=== PATIENT | male | born 1970 | race Hispanic/Latino ===

== ENCOUNTER 2017-02-05 14:19 | Emergency (ER) | payer MEDICAID ==
[2017-02-05] MEDS ORDERED: Sodium Chloride 0.9% 1,000 ML IV STA (15:10)
--- NOTE | 2017-02-05 15:16 | C.PDOC ---
History Of Present Illness 46 y/o M c PMHx heroin abuse, chronic Hep C p/w abdominal pain since last night. Describes pain as "hard," LLQ, radiating to umbilicus and RLQ, associated with nausea and diarrhea. Denies fever, vomiting, dysuria, chest pain. Patient had similar pain about 3 weeks ago at went to hospital in [place] and had CT which showed dilated appendix but no significant inflammation. He was admitted and his pain was gone the next morning and no operation was performed but he was instructed to return should the pain return. Time Seen by Provider: 02/05/17 14:50 Chief Complaint (Nursing): Abdominal Pain History Per: Patient History/Exam Limitations: no limitations Onset/Duration Of Symptoms: Days (1) Past Medical History Reviewed: Historical Data, Nursing Documentation, Vital Signs Vital Signs: Last Vital Signs Temp 98.1 F 02/05/17 18:08 Pulse 53 L 02/05/17 18:08 Resp 17 02/05/17 18:08 BP 128/76 02/05/17 18:08 Pulse Ox 94 L 02/05/17 18:49 - Medical History PMH: Anxiety, Bipolar Disorder, Depression Family History: States: No Known Family Hx - Social History Hx Alcohol Use: No Hx Substance Use: Yes Review Of Systems Except As Marked, All Systems Reviewed And Found Negative. Constitutional: Negative for: Fever Cardiovascular: Negative for: Chest Pain Physical Exam - Physical Exam Additional Physical Exam Comments: Constitutional: No acute distress. Head: Normocephalic. Atraumatic. Eyes: PERRL. ENT: Moist mucous membranes. Neck: Supple. Cardiovascular: Regular rate. Radial pulses 2+ bilaterally. Chest: No tenderness. Respiratory: Clear to auscultation bilaterally. GI: Soft. Nondistended. Mild LLQ tenderness. No rebound or guarding. Back: No CVA tenderness. Musculoskeletal: No tenderness or swelling of extremities. Skin: No rash. Neurologic: Alert, no focal deficit. ED Course And Treatment - Laboratory Results Result Diagrams: 02/05/17 15:39 02/05/17 15:39 O2 Sat by Pulse Oximetry: 94 Medical Decision Making Medical Decision Making: PLAN: * CT - Abd & Pelvis * Alcohol Serum * Drug Screen * CBC * Urinalysis * Zofran IVP * Sodium Chloride IV NOTE: * Will repeat labs and CT. Patient also states he was initially going to present to the ER for detox from heroin, but then he began having this pain last night. Will clear for detox should his medical evaluation be normal and there is bed availability for detox. CT - Abd & Pelvis: PROCEDURE: CT Abdomen and Pelvis with oral and IV contrast. HISTORY: abd pain, vomiting, r/o appendicitis COMPARISON: None available. TECHNIQUE: Contiguous axial images of the abdomen and pelvis. Oral and IV contrast was administered. Coronal and Sagittal reformats generated and reviewed. Contrast dose: 100 mL Omnipaque 350 Radiation dose: Total exam DLP = 585.51 mGy-cm. FINDINGS: LOWER THORAX: 9 mm right lower lobe calcified granuloma. Minimal basilar atelectasis. No visible pleural effusion or pneumothorax. LIVER: Hypoattenuation of the liver compatible with hepatic steatosis. GALLBLADDER AND BILE DUCTS: Decompressed gallbladder appears otherwise grossly unremarkable. PANCREAS: Unremarkable. SPLEEN: Unremarkable. ADRENALS: Unremarkable. KIDNEYS AND URETERS: The kidneys enhance symmetrically. No hydronephrosis or obstructing renal calculus. BLADDER: Thick-walled under distended urinary bladder. REPRODUCTIVE: The prostate gland measures approximately 3.9 x 4.3 cm. APPENDIX: The appendix measures approximately 9 mm in diameter, mildly dilated. No adjacent inflammatory changes identified. BOWEL: The stomach is nondistended. The bowel loops appear within normal limits of caliber without evidence of intestinal obstruction. PERITONEUM: No significant free fluid. No definite free air. LYMPH NODES: No bulky lymphadenopathy identified. VASCULATURE: Atherosclerotic calcifications. No aortic aneurysm. BONES: Degenerative changes of the spine. OTHER FINDINGS: Small fat containing umbilical hernia. IMPRESSION: The appendix measures approximately 9 mm in diameter, mildly dilated. No adjacent inflammatory changes identified. Correlate with white blood cell count and physical exam in order to assess for possibility of early appendicitis. Thick-walled urinary bladder likely exaggerated by under distension. Recommend correlation with urinalysis. Additional findings as above. Patient at reassessment states he feels better. There is no abdominal tenderness whatsoever. Patient appears well. Patient unlikely with appendicitis , pain is actually LLQ, not RLQ. There is no detox bed availability. I instructed the patient to call for availability each morning. I instructed the patient to return to the ER for RLQ pain. Disposition - Disposition Disposition: HOME/ ROUTINE Disposition Time: 18:08 Condition: STABLE Additional Instructions: Call the [facility] ER at [phone] and ask to be transferred to Detox and ask if they have any detox spots open for you. Instructions: Abdominal Pain (ED) - Clinical Impression Clinical Impression: Abdominal pain - Scribe Statement The provider has reviewed the documentation as recorded by the Scribe Janice Timmons Provider Attestation: All medical record entries made by the Octavioibe were at my direction and personally dictated by me. I have reviewed the chart and agree that the record accurately reflects my personal performance of the history, physical exam, medical decision making, and the department course for this patient. I have also personally directed, reviewed, and agree with the discharge instructions and disposition.
[2017-02-05] MEDS ORDERED: Sodium Chloride 0.9% 1,000 ML ONE (15:41)
[2017-02-05 15:50] LABS: BASO # 0.1 K/uL (0.0-0.2); BASO % 0.4 % (0.0-2.0); EOS # 0.1 K/uL (0.0-0.7); EOS % 1.1 % (0.0-4.0); HEMATOCRIT 39.6 % (35.0-51.0); LYMPH # 1.6 K/uL (1.0-4.3); LYMPH % 13.8 % (20.0-40.0); MEAN CELL VOLUME 90.2 fL (80.0-94.0); MEAN CORPUSCULAR HEMOGLOBIN 30.3 pg (27.0-31.0); MEAN CORPUSCULAR HGB CONC 33.6 g/dL (33.0-37.0); MONO # 0.7 K/uL (0.0-0.8); MONO % 5.8 % (0.0-10.0); RED CELL DISTRIBUTION WIDTH 13.8 % (11.5-14.5); WHITE BLOOD COUNT 11.7 K/uL (4.8-10.8)
[2017-02-05] MEDS ORDERED: Iohexol 240 (50 ml) PO ONE (15:51)
[2017-02-05 15:59] LABS: CHLORIDE 98 mmol/L (98-107); RBC URINE 6 /hpf (0-3); URINE BILIRUBIN NEGATIVE (NEGATIVE); URINE BLOOD NEGATIVE (NEGATIVE); URINE CALCIUM OXALATE CRYSTALS MANY /hpf (<OCC); URINE COLOR Yellow (YELLOW); URINE GLUCOSE (UA) NORMAL (Normal); URINE KETONE NEGATIVE (NEGATIVE); URINE LEUKOCYTE ESTERASE NEG Leu/uL (Negative); URINE PROTEIN NEGATIVE (NEGATIVE)
[2017-02-05 16:00] LABS: POTASSIUM 3.7 mmol/L (3.6-5.2); SODIUM 143 mmol/L (132-148)
[2017-02-05 16:02] LABS: GFR AFRICAN-AMERICAN > 60
[2017-02-05 16:03] LABS: ALB/GLOB RATIO 1.3 (1.0-2.1); ALKALINE PHOSPHATASE 64 U/L (38-126); ALT/SGPT 22 U/L (21-72); AST/SGOT 24 U/L (17-59); BILIRUBIN,TOTAL 0.5 mg/dL (0.2-1.3); BLOOD UREA NITROGEN 11 mg/dL (9-20); CALCIUM 8.8 mg/dl (8.6-10.4); CARBON DIOXIDE 31 mmol/L (22-30); GLUCOSE,RANDOM 95 mg/dL (75-110); TOTAL PROTEIN 7.3 g/dL (6.3-8.3)
[2017-02-05 16:04] LABS: ALCOHOL SERUM < 10 mg/dl (0-10)
[2017-02-05] MEDS ORDERED: Iohexol 240 (50 ml) ONE (16:24)
[2017-02-05] MEDS ORDERED: Iohexol 350mg/ml 100 ML ONE (16:38)
--- NOTE | 2017-02-05 18:09 | CT ---
PROCEDURE: CT Abdomen and Pelvis with oral and IV contrast. HISTORY: abd pain, vomiting, r/o appendicitis COMPARISON: None available. TECHNIQUE: Contiguous axial images of the abdomen and pelvis. Oral and IV contrast was administered. Coronal and Sagittal reformats generated and reviewed. Contrast dose: 100 mL Omnipaque 350 Radiation dose: Total exam DLP = 585.51 mGy-cm. FINDINGS: LOWER THORAX: 9 mm right lower lobe calcified granuloma. Minimal basilar atelectasis. No visible pleural effusion or pneumothorax. LIVER: Hypoattenuation of the liver compatible with hepatic steatosis. GALLBLADDER AND BILE DUCTS: Decompressed gallbladder appears otherwise grossly unremarkable. PANCREAS: Unremarkable. SPLEEN: Unremarkable. ADRENALS: Unremarkable. KIDNEYS AND URETERS: The kidneys enhance symmetrically. No hydronephrosis or obstructing renal calculus. BLADDER: Thick-walled under distended urinary bladder. REPRODUCTIVE: The prostate gland measures approximately 3.9 x 4.3 cm. APPENDIX: The appendix measures approximately 9 mm in diameter, mildly dilated. No adjacent inflammatory changes identified. BOWEL: The stomach is nondistended. The bowel loops appear within normal limits of caliber without evidence of intestinal obstruction. PERITONEUM: No significant free fluid. No definite free air. LYMPH NODES: No bulky lymphadenopathy identified. VASCULATURE: Atherosclerotic calcifications. No aortic aneurysm. BONES: Degenerative changes of the spine. OTHER FINDINGS: Small fat containing umbilical hernia. IMPRESSION: The appendix measures approximately 9 mm in diameter, mildly dilated. No adjacent inflammatory changes identified. Correlate with white blood cell count and physical exam in order to assess for possibility of early appendicitis. Thick-walled urinary bladder likely exaggerated by under distension. Recommend correlation with urinalysis. Additional findings as above.
[2017-02-05 18:14] VITALS: BP 128/76; PULSE 53; RESP 17; TEMP 98.1
[2017-02-05 18:18] VITALS: O2SAT 94
== END 2017-02-05 19:17 | disposition home or self-care (01) ==
LOC: C.ER 14:19
DX: R10.32 Left lower quadrant pain (principal)
CPT/HCPCS: 74177; 80053; 80320; 80324; 80329; 80345; 80346; 80349; 80353; 80358; 80361; 81001; 83690; 83992; 85025; 87086; 96361; 96374; 99285; J2405; J7040; Q9966; Q9967

== ENCOUNTER 2017-02-10 00:14 | Emergency (ER) | payer MEDICAID ==
[2017-02-10 00:44] VITALS: O2SAT 98
--- NOTE | 2017-02-10 01:25 | C.PDOC ---
History Of Present Illness 46 year old patient with a past medical history of depression, anxiety and bipolar disorder, presents to the ED requesting detox from heroin. Patient also states he ran out of his psychiatric medications several days ago. He denies any physical complaints at this time. Time Seen by Provider: 02/10/17 01:18 Chief Complaint (Nursing): Substance Abuse History Per: Patient History/Exam Limitations: no limitations Current Symptoms Are (Timing): Still Present Suicide/Self Injury Attempted (Context): None Modifying Factor(s): Narcotics Past Medical History Reviewed: Historical Data, Nursing Documentation, Vital Signs Vital Signs: Last Vital Signs Temp 98.1 F 02/10/17 02:57 Pulse 71 02/10/17 02:57 Resp 20 02/10/17 02:57 BP 107/58 L 02/10/17 02:57 Pulse Ox 98 02/10/17 04:52 - Medical History PMH: Anxiety, Bipolar Disorder, Depression Family History: States: No Known Family Hx - Social History Hx Alcohol Use: No Hx Substance Use: Yes - Immunization History Hx Tetanus Toxoid Vaccination: No Hx Influenza Vaccination: No Hx Pneumococcal Vaccination: Yes Review Of Systems Except As Marked, All Systems Reviewed And Found Negative. Constitutional: Negative for: Fever, Chills Cardiovascular: Negative for: Chest Pain Respiratory: Negative for: Cough, Shortness of Breath Gastrointestinal: Negative for: Nausea, Vomiting, Abdominal Pain, Diarrhea Psych: Negative for: Suicidal ideation Physical Exam - Physical Exam Appears: Well, Non-toxic, No Acute Distress Skin: Warm, Dry Eye(s): bilateral: Normal Inspection Oral Mucosa: Moist Neck: Normal, Normal ROM, Supple Cardiovascular: Rhythm Regular Respiratory: Normal Breath Sounds, No Rales, No Rhonchi, No Wheezing Gastrointestinal/Abdominal: Normal Exam, Bowel Sounds, Soft, No Tenderness Extremity: Normal ROM, No Pedal Edema, No Calf Tenderness Neurological/Psych: Oriented x3 Gait: Steady ED Course And Treatment O2 Sat by Pulse Oximetry: 98 (RA) Pulse Ox Interpretation: Normal Progress Note: Spoke with crisis counselor, there are no current detox beds available. Patient given 1 dose of PO Depakote/Seroquel/Zoloft in ED, as well as Rx for 1 week supply of the same. He was instructed to return to ED at another time or call crisis for prescreening. Patient also instructed to follow up with psychiatrist/PMD within 1 week for Rxs of his psychiatric meds/ reassessment. Reevaluation Time: 01:50 Reassessment Condition: Improved Disposition Counseled Patient/Family Regarding: Diagnosis, Need For Followup, Rx Given - Disposition Referrals: [facility] [Outside] Disposition: HOME/ ROUTINE Disposition Time: 01:50 Condition: STABLE Additional Instructions: FOLLOW UP WITH YOUR PSYCHIATRIST WITHIN 1 WEEK FOR YOUR PSYCHIATRIC MEDICATIONS/ EVALUATION RETURN TO ER IN 1-2 DAYS TO TRY AGAIN FOR DETOX BED, OR CALL FOR PRESCREENING Prescriptions: Divalproex [Depakote ER] 500 mg PO HS #7 ter QUEtiapine [SEROquel] 200 mg PO HS #7 tab Sertraline [Zoloft] 50 mg PO DAILY #7 tab Instructions: Narcotic Abuse (ED) Print Language: MALAGASY - POA Present On Arrival: None - Clinical Impression Clinical Impression: Heroin use, Medication refill - Scribe Statement The provider has reviewed the documentation as recorded by the Octavioibeliz Doan Provider Attestation: All medical record entries made by the Octavioibeliz were at my direction and personally dictated by me. I have reviewed the chart and agree that the record accurately reflects my personal performance of the history, physical exam, medical decision making, and the department course for this patient. I have also personally directed, reviewed, and agree with the discharge instructions and disposition.
[2017-02-10] MEDS ORDERED: Divalproex 500 mg DR Tab PO ONE (01:45)
[2017-02-10 02:58] VITALS: BP 107/58; PULSE 71; RESP 20; TEMP 98.1
== END 2017-02-10 03:35 | disposition home or self-care (01) ==
LOC: C.ER 00:14
DX: F11.10 Opioid abuse, uncomplicated (principal); Z76.0 Encounter for issue of repeat prescription

== ENCOUNTER 2017-02-10 13:02 | Inpatient (IN) | payer MEDICAID ==
--- NOTE | 2017-02-10 14:16 | C.PDOC ---
History Of Present Illness 46 y/o M c PMHx heroin abuse p/w syncope today. Patient states that he was going to call detox center to ask for bed availability when he suddenly lost consciousness and awoke on the floor. He denies chest pain, dyspnea, palpitations. His last heroin use was this morning. He notes he lost consciousness 3 times today. Reports mild facial pain but otherwise denies any injuries. Time Seen by Provider: 02/10/17 13:58 Chief Complaint (Nursing): Syncope Past Medical History Reviewed: Historical Data, Nursing Documentation, Vital Signs Vital Signs: Last Vital Signs Temp 98.5 F 02/10/17 13:28 Pulse 80 02/10/17 13:28 Resp 18 02/10/17 13:28 BP 108/72 02/10/17 13:28 Pulse Ox 98 02/10/17 15:07 - Medical History PMH: Anxiety, Bipolar Disorder, Depression Surgical History: No Surg Hx Family History: States: Unknown Family Hx - Social History Hx Tobacco Use: Yes (light smoker) Hx Alcohol Use: No Hx Substance Use: Yes (heroin iv) - Immunization History Hx Tetanus Toxoid Vaccination: No Hx Influenza Vaccination: No Hx Pneumococcal Vaccination: Yes Review Of Systems Except As Marked, All Systems Reviewed And Found Negative. Constitutional: Negative for: Fever Cardiovascular: Negative for: Chest Pain Respiratory: Negative for: Shortness of Breath Physical Exam - Physical Exam Additional Physical Exam Comments: Constitutional: No acute distress. Head: Normocephalic. Skin flap over bridge of nose. Contusion to forehead. Abrasion to chin. Eyes: PERRL. ENT: Moist mucous membranes. Neck: Supple. No midline tenderness. Cardiovascular: Regular rate. Radial pulse 2+ bilaterally. Chest: No tenderness. Respiratory: Clear to auscultation bilaterally. GI: Soft. Nontender. Nondistended. Back: No CVA tenderness. No midline tenderness. Musculoskeletal: No tenderness or swelling of extremities. FROM x 4. Pelvis stable. Skin: No rash. Neurologic: Alert, no focal deficit. ED Course And Treatment - Laboratory Results Result Diagrams: 02/10/17 14:23 02/10/17 14:23 O2 Sat by Pulse Oximetry: 98 (ra) Pulse Ox Interpretation: Normal Medical Decision Making Medical Decision Making: EKG NSR 62 bpm, no ST/T wave changes, normal intervals, normal axis. CT Head, Read by Shannon Riggins MD: FINDINGS: HEMORRHAGE: No intracranial hemorrhage. BRAIN: No mass effect or edema. No atrophy or chronic microvascular ischemic changes.Please note that MRI with diffusion imaging is more sensitive in the detection of acute ischemic event. VENTRICLES: No hydrocephalus. CALVARIUM: Unremarkable. PARANASAL SINUSES: Unremarkable as visualized. No significant inflammatory changes. MASTOID AIR CELLS: Unremarkable as visualized. No inflammatory changes. OTHER FINDINGS: None. IMPRESSION: No acute intracranial pathology identified. Accepted for observation by Dr. Barros. Disposition - Disposition Disposition: HOSPITALIZED Disposition Time: 15:00 Condition: FAIR - Clinical Impression Clinical Impression: Syncope
[2017-02-10 14:26] LABS: BASO % 0.2 % (0.0-2.0); EOS # 0.1 K/uL (0.0-0.7); EOS % 1.3 % (0.0-4.0); HEMATOCRIT 37.2 % (35.0-51.0); LYMPH # 1.6 K/uL (1.0-4.3); LYMPH % 14.5 % (20.0-40.0); MEAN CELL VOLUME 90.4 fL (80.0-94.0); MEAN CORPUSCULAR HEMOGLOBIN 29.9 pg (27.0-31.0); MEAN CORPUSCULAR HGB CONC 33.1 g/dL (33.0-37.0); MEAN PLATELET VOLUME 8.5 fL (7.2-11.7); MONO # 0.6 K/uL (0.0-0.8); RED CELL DISTRIBUTION WIDTH 13.9 % (11.5-14.5); WHITE BLOOD COUNT 11.1 K/uL (4.8-10.8)
[2017-02-10 14:33] LABS: CHLORIDE 104 mmol/L (98-107)
[2017-02-10 14:34] LABS: POTASSIUM 4.6 mmol/L (3.6-5.2); SODIUM 142 mmol/L (132-148)
[2017-02-10 14:36] LABS: ALB/GLOB RATIO 1.3 (1.0-2.1); AST/SGOT 19 U/L (17-59); BILIRUBIN,TOTAL 0.2 mg/dL (0.2-1.3); CARBON DIOXIDE 26 mmol/L (22-30); GFR AFRICAN-AMERICAN > 60; TOTAL PROTEIN 6.9 g/dL (6.3-8.3)
[2017-02-10 14:37] LABS: ALKALINE PHOSPHATASE 58 U/L (38-126); ALT/SGPT 26 U/L (21-72); BLOOD UREA NITROGEN 17 mg/dL (9-20); CALCIUM 8.7 mg/dl (8.6-10.4); GLUCOSE,RANDOM 90 mg/dL (75-110)
--- NOTE | 2017-02-10 14:59 | CT ---
PROCEDURE: CT HEAD WITHOUT CONTRAST. HISTORY: syncope and fall COMPARISON: None available. TECHNIQUE: Axial computed tomography images were obtained through the head/brain without intravenous contrast. Radiation dose: Total exam DLP = 983.55 mGy-cm. This CT exam was performed using one or more of the following dose reduction techniques: Automated exposure control, adjustment of the mA and/or kV according to patient size, and/or use of iterative reconstruction technique. FINDINGS: HEMORRHAGE: No intracranial hemorrhage. BRAIN: No mass effect or edema. No atrophy or chronic microvascular ischemic changes.Please note that MRI with diffusion imaging is more sensitive in the detection of acute ischemic event. VENTRICLES: No hydrocephalus. CALVARIUM: Unremarkable. PARANASAL SINUSES: Unremarkable as visualized. No significant inflammatory changes. MASTOID AIR CELLS: Unremarkable as visualized. No inflammatory changes. OTHER FINDINGS: None. IMPRESSION: No acute intracranial pathology identified.
[2017-02-10] MEDS ORDERED: Bacitracin 500 Units/gm Oint Foilpak UD TOP ONE (17:42)
--- NOTE | 2017-02-10 17:50 | CP.PCM.HP ---
<Wilda Blake - Last Filed: 02/10/17 19:20> History of Present Illness - History of Present Illness History of Present Illness: Internal medicine H & P for hospitalist service- Wildagary Blake, PGY-1 Pt S & E at bedside. 46 yo M w/PMH sig for Hep C, bipolar d/o, anxiety, depression admitted for syncopal events x 3. Pt reports that this morning at 9am, he was standing outside his sister's building with friends when he experienced lightheadedness, blurry vision and felt "woozy"/"off balance"- pt feel to the ground, reports LOC x 3-4 minutes, got back up after trauma to his head and left hand, then steadied himself on a wall, within 5 minutes he had the same symptoms and again LOC for 3-4 minutes, again got up and steadied himself on the wall x 30 minutes. Then pt walked into the building, got into the elevator, had the same symptoms and LOC in elevator at which point, a friend decided to bring him to the hospital. Pt reports last heroin use at approximately 11am (after LOC events). Admits to desire to enter detox- pt tried to get into detox program at [facility] [employer] - was given Rx and told to call in AM for bed. Admits to history of falls/LOC 3-4 times previous with no work up, headache, diplopia, diaphoresis, nausea, starting to feel that he's withdrawing- feeling shaky, myaglais. Denies emesis, fevers, chills, SOB, CP, abdominal pain, constipation , diarrhea, loss of bowel or bladder, numbness/tingling, dizziness, seizure activity, cough, congestion, sore throat. PMH: Hep C, Bipolar d/o, anxiety, depression, heart murmur (?) PSH: Tibia reconstructive surgery (), Left elbow reconstructive surgery ( ) All: Denies SH: Admits to 7-8 cigarettes/day tobacco use, denies ETOH, admits to heroin 8 bags/day x 20+ yrs intermittently PMD: Denies Present on Admission - Present on Admission Any Indicators Present on Admission: No History of DVT/PE: No History of Uncontrolled Diabetes: No Urinary Catheter: No Decubitus Ulcer Present: No Review of Systems - Review of Systems All systems: reviewed and no additional remarkable complaints except - Constitutional Constitutional: Weight Loss. absent: Chills, Fever, Headache - EENT Eyes: Blurred Vision, Change in Vision. absent: Diplopia Ears: absent: Dizziness Nose/Mouth/Throat: Nasal Trauma (over nasal bridge). absent: Nasal Congestion, Sore Throat - Cardiovascular Cardiovascular: absent: Chest Pain, Palpitations - Respiratory Respiratory: absent: Cough, Dyspnea on Exertion - Gastrointestinal Gastrointestinal: Nausea. absent: Abdominal Pain, Constipation, Diarrhea, Hematemesis, Hematochezia, Vomiting - Genitourinary Genitourinary: absent: Dysuria, Hematuria - Integumentary Integumentary: Wounds - Neurological Neurological: absent: Tingling, Vertigo - Psychiatric Psychiatric: Anxiety - Endocrine Endocrine: absent: Palpitations Past Patient History - Past Social History Smoking Status: Light Smoker < 10 Cigarettes Daily - HEMATOLOGICAL/ONCOLOGICAL Hx Blood Disorders: Yes Hx Hepatitis C: Yes - PSYCHIATRIC Hx Anxiety: Yes Hx Bipolar Disorder: Yes Hx Depression: Yes Hx Substance Use: Yes (heroin iv) - SURGICAL HISTORY Hx Surgeries: Yes Hx Orthopedic Surgery: Yes Other/Comment: right tib/fib fx sx (+) hardware. right elbow fx sx - ANESTHESIA Hx Anesthesia: Yes Meds Allergies/Adverse Reactions: Allergies Allergy/AdvReac Type Severity Reaction Status Date / Time No Known Allergies Allergy Verified 02/10/17 00:43 Physical Exam - Constitutional Appears: Non-toxic, No Acute Distress - Head Exam Head Exam: NORMOCEPHALIC. absent: ATRAUMATIC (abrasion on left side of chin- superficial, superficial laceration over nasal bridge- hemostatic, contusion on forehead), NORMAL INSPECTION - Eye Exam Eye Exam: EOMI, Normal appearance, PERRL Pupil Exam: NORMAL ACCOMODATION, PERRL - ENT Exam ENT Exam: Mucous Membranes Moist, Normal Exam - Neck Exam Neck exam: Positive for: Full Rom, Normal Inspection. Negative for: Tenderness - Respiratory Exam Respiratory Exam: Clear to Auscultation Bilateral, NORMAL BREATHING PATTERN. absent: Rales, Rhonchi, Wheezes, Respiratory Distress, Stridor - Cardiovascular Exam Cardiovascular Exam: REGULAR RHYTHM, +S1, +S2 - GI/Abdominal Exam GI & Abdominal Exam: Normal Bowel Sounds, Soft. absent: Distended, Firm, Guarding, Hernia, Rebound, Rigid, Tenderness - Extremities Exam Extremities exam: Positive for: full ROM, normal inspection. Negative for: pedal edema, tenderness - Back Exam Back exam: FULL ROM, NORMAL INSPECTION. absent: paraspinal tenderness, tenderness - Neurological Exam Neurological exam: Alert, CN II-XII Intact, Oriented x3 - Psychiatric Exam Psychiatric exam: Normal Affect, Normal Mood - Skin Skin Exam: Abrasion (over left chin, dorsum of left hand), Normal Color, Warm Additional comments: superficial laceration over nasal bridge- hemostatic Results - Vital Signs Recent Vital Signs: Last Vital Signs Temp 98.5 F 02/10/17 13:28 Pulse 80 02/10/17 13:28 Resp 18 02/10/17 13:28 BP 108/72 02/10/17 13:28 Pulse Ox 98 02/10/17 16:43 - Labs Result Diagrams: 02/10/17 14:23 02/10/17 14:23 Assessment & Plan - Assessment and Plan (Free Text) Assessment: Syncope FU echo FU serial ROMIs/EKG in AM NS@100 Zofran PRN Tylenol PRN Neuro checks Q4H Wound care to abrasions - Bacitracin Q12H FU carotids CT brain neg Substanace abuse/Bipolar/anxiety/depression Cont home meds: Depakote, Seroquel, Zoloft Started Methadone 10mg Q8H Psych consult- Jose L GI/DVT ppx SCDs Heparin pepcid Dispo Regular diet Admit to tele VS Q4H Seizure precautions Fall precautions Wound care to abrasions DW attending - Date & Time Date: 02/10/17 Time: 16:25 Decision To Admit - Pt Status Changed To: Hospital Disposition Of: Observation - . Bed Request Type: Telemetry Admitting Physician: Bon Franklin <Bon Franklin - Last Filed: 02/11/17 15:09> Results - Vital Signs Recent Vital Signs: Last Vital Signs Temp 98.6 F 02/11/17 00:30 Pulse 59 L 02/11/17 08:30 Resp 15 02/11/17 00:30 BP 127/75 02/11/17 00:30 Pulse Ox 100 02/11/17 00:30 - Labs Result Diagrams: 02/11/17 07:07 02/11/17 07:07 Labs: Laboratory Results - last 24 hr 02/10/17 02/11/17 02/11/17 20:11 02:08 07:07 WBC 8.4 RBC 3.94 L Hgb 11.9 L Hct 36.0 MCV 91.6 MCH 30.2 MCHC 33.0 RDW 14.2 Plt Count 227 MPV 8.9 Neut % (Auto) 55.9 Lymph % (Auto) 34.5 Divide % (Auto) 5.3 Eos % (Auto) 3.9 Baso % (Auto) 0.4 Neut # 4.7 Lymph # 2.9 Divide # 0.4 Eos # 0.3 Baso # 0.0 APTT 36 H Sodium 142 Potassium 4.0 Chloride 103 Carbon Dioxide 28 Anion Gap 15 BUN 14 Creatinine 0.9 Est GFR ( Amer) > 60 Est GFR (Non-Af Amer) > 60 Random Glucose 71 L Calcium 8.0 L Total Bilirubin 0.6 AST 15 L D ALT 20 L D Alkaline Phosphatase 49 Total Creatine Kinase 47 L 48 L CK-MB (Mass) 0.77 0.67 Troponin I, Quant < 0.0120 < 0.0120 Total Protein 5.8 L Albumin 3.2 L Globulin 2.6 Albumin/Globulin Ratio 1.2 Attending/Attestation - Attestation I have personally seen and examined this patient.: Yes I have fully participated in the care of the patient.: Yes I have reviewed all pertinent clinical information: Yes Notes (Text): 02/11/17 15:07 Patient was seen and examined at bedside with the resident at the time of admission The patient complains of multiple syncopal episodes. Patient also complains of body aches and pains and states that he is withdrawing from heroin We will admit the patient for syncope and heroin withdrawal. We will start the patient on methadone as needed for withdrawal symptoms We will also do workup for syncope Discussed the plan of care with the resident and agree with the above history and physical and assessment/plan by the resident.
[2017-02-10] MEDS: Sodium Chloride 0.9% 1,000 ML IV SCH (18:29)
[2017-02-10] MEDS ORDERED: Bacitracin 500 Units/gm Oint Foilpak UD ONE (18:34)
[2017-02-10] MEDS ORDERED: Sodium Chloride 0.9% 1,000 ML ONE (18:34)
[2017-02-10] MEDS ORDERED: Divalproex 500 mg DR Tab PO ONE (18:41)
[2017-02-10] MEDS: Divalproex 500 mg ER Tab PO SCH (18:46)
[2017-02-10] MEDS: Bacitracin Ointment 30 GM TUBE TOP SCH (20:39)
[2017-02-11] MEDS: Sodium Chloride 0.9% 1,000 ML IV SCH ×3 (01:45→19:34)
[2017-02-11] MEDS: Bacitracin Ointment 30 GM TUBE TOP SCH ×2 (06:41→19:33)
[2017-02-11 07:28] LABS: CHLORIDE 103 mmol/L (98-107); SODIUM 142 mmol/L (132-148)
[2017-02-11 07:29] LABS: BASO % 0.4 % (0.0-2.0); EOS # 0.3 K/uL (0.0-0.7); EOS % 3.9 % (0.0-4.0); LYMPH # 2.9 K/uL (1.0-4.3); LYMPH % 34.5 % (20.0-40.0); MEAN CELL VOLUME 91.6 fL (80.0-94.0); MEAN CORPUSCULAR HEMOGLOBIN 30.2 pg (27.0-31.0); MEAN PLATELET VOLUME 8.9 fL (7.2-11.7); MONO # 0.4 K/uL (0.0-0.8); MONO % 5.3 % (0.0-10.0); RED CELL DISTRIBUTION WIDTH 14.2 % (11.5-14.5); WHITE BLOOD COUNT 8.4 K/uL (4.8-10.8)
[2017-02-11 07:30] LABS: BILIRUBIN,TOTAL 0.6 mg/dL (0.2-1.3); GFR AFRICAN-AMERICAN > 60
[2017-02-11 07:31] LABS: ALB/GLOB RATIO 1.2 (1.0-2.1); ALKALINE PHOSPHATASE 49 U/L (38-126); ALT/SGPT 20 U/L (21-72); AST/SGOT 15 U/L (17-59); BLOOD UREA NITROGEN 14 mg/dL (9-20); CARBON DIOXIDE 28 mmol/L (22-30); GLUCOSE,RANDOM 71 mg/dL (75-110); TOTAL PROTEIN 5.8 g/dL (6.3-8.3)
[2017-02-11] MEDS: Divalproex 500 mg ER Tab PO SCH ×2 (09:28→19:33)
--- NOTE | 2017-02-11 12:40 | CP.PCM.PN ---
Addendum entered and electronically signed by Wilda Blake DO 02/11/17 14:04: Spoke with Dr. Ledezma regarding pt's request for detox- pt will be evaluated, possible transfer to detox unit when bed available. Original Note: <Wilda Blake - Last Filed: 02/11/17 12:37> Subjective - Date & Time of Evaluation Date of Evaluation: 02/11/17 Time of Evaluation: 07:10 - Subjective Subjective: Internal medicine progress note for Hospitalist service- Wilda Blake, PGY-1 Pt S & E at bedside. Pt reports continued blurry vision, lightheadedness, weakness, shakes, whole body pain from falls yesterday. Pt reports tolerating diet, denies N/V. Denies lethargy, F/C, SOB, CP, abdominal pain, slept ok, is urinating ok. Objective - Vital Signs/Intake and Output Vital Signs (last 24 hours): Temp Pulse Resp BP Pulse Ox 98.6 F 59 L 15 127/75 100 02/11/17 00:30 02/11/17 08:30 02/11/17 00:30 02/11/17 00:30 02/11/17 00:30 Intake and Output: 02/11/17 02/11/17 06:59 18:59 Intake Total 450 Balance 450 - Medications Medications: Current Medications Acetaminophen (Tylenol 325mg Tab) 650 mg PO Q6 PRN PRN Reason: Pain, moderate (4-7) Bacitracin (Bacitracin) 1 gm TOP Q12H [facility] Last Admin: 02/11/17 06:41 Dose: 1 gm Divalproex Sodium (Depakote Er) 500 mg PO DAILY [facility] Last Admin: 02/11/17 09:28 Dose: 500 mg Famotidine (Pepcid) 20 mg PO BID [facility] Last Admin: 02/11/17 09:28 Dose: 20 mg Heparin Sodium (Porcine) (Heparin) 5,000 units SC Q8 [facility] Last Admin: 02/11/17 05:15 Dose: 5,000 units Sodium Chloride (Sodium Chloride 0.9%) 1,000 mls @ 100 mls/hr IV .Q10H [facility] Last Admin: 02/11/17 04:04 Dose: Not Given Ibuprofen (Motrin Tab) 600 mg PO TID PRN PRN Reason: Pain, moderate (4-7) Methadone HCl (Methadone) 10 mg PO Q8H [facility] Last Admin: 02/11/17 09:28 Dose: 10 mg Ondansetron HCl (Zofran Inj) 4 mg IVP Q6 PRN PRN Reason: Nausea/Vomiting Quetiapine Fumarate (Seroquel) 200 mg PO HS [facility] Last Admin: 02/10/17 22:07 Dose: 200 mg Sertraline HCl (Zoloft) 50 mg PO DAILY [facility] Last Admin: 02/11/17 09:28 Dose: 50 mg - Labs Labs: 02/11/17 07:07 02/11/17 07:07 APTT 36 SECONDS (21-34) H 02/11/17 07:07 - Constitutional Appears: Non-toxic, No Acute Distress - Head Exam Head Exam: NORMAL INSPECTION, NORMOCEPHALIC. absent: ATRAUMATIC (contusion on forehead, superficial laceration over nasal bridge, abrasion of Left chin) - Eye Exam Eye Exam: EOMI, Normal appearance, PERRL Pupil Exam: NORMAL ACCOMODATION, PERRL - ENT Exam ENT Exam: Mucous Membranes Moist, Normal Exam - Neck Exam Neck Exam: Full ROM, Normal Inspection. absent: Tenderness - Respiratory Exam Respiratory Exam: Clear to Ausculation Bilateral, NORMAL BREATHING PATTERN - Cardiovascular Exam Cardiovascular Exam: REGULAR RHYTHM, +S1, +S2 - GI/Abdominal Exam GI & Abdominal Exam: Soft, Normal Bowel Sounds. absent: Tenderness - Extremities Exam Extremities Exam: Full ROM, Normal Inspection. absent: Pedal Edema, Tenderness - Back Exam Back Exam: Full ROM, NORMAL INSPECTION - Neurological Exam Neurological Exam: Alert, Awake, CN II-XII Intact, Oriented x3 - Psychiatric Exam Psychiatric exam: Normal Affect, Normal Mood - Skin Skin Exam: Abrasion (left chin), Dry, Normal Color, Warm. absent: Diaphoretic, Intact (nasal bridge laceration- superficial) Assessment and Plan - Assessment and Plan (Free Text) Assessment: Syncope Afebrile over 24H No leukocytosis FU echo- report pending Serial ROMIs neg x 3 EKG in AM- NSR NS@100 Zofran PRN Tylenol PRN Neuro checks Q4H Wound care to abrasions - Bacitracin Q12H FU carotids- report pending CT brain neg Motrin PRN Substance abuse/Bipolar/anxiety/depression Cont home meds: Depakote, Seroquel, Zoloft Started Methadone 10mg Q8H Psych consult- Jose L Pt desires detox program GI/DVT ppx SCDs Heparin pepcid Dispo Wound care FU psych recs VS Q4H Seizure precautions Fall precautions Wound care to abrasions DW attending <Bon Franklin - Last Filed: 02/11/17 17:28> Objective - Vital Signs/Intake and Output Vital Signs (last 24 hours): Temp Pulse Resp BP Pulse Ox 97.8 F 58 L 20 112/69 98 02/11/17 15:34 02/11/17 15:34 02/11/17 15:34 02/11/17 15:34 02/11/17 15:34 Intake and Output: 02/11/17 02/11/17 06:59 18:59 Intake Total 450 Balance 450 - Medications Medications: Current Medications Acetaminophen (Tylenol 325mg Tab) 650 mg PO Q6 PRN PRN Reason: Pain, moderate (4-7) Bacitracin (Bacitracin) 1 gm TOP Q12H [facility] Last Admin: 02/11/17 06:41 Dose: 1 gm Divalproex Sodium (Depakote Er) 500 mg PO DAILY [facility] Last Admin: 02/11/17 09:28 Dose: 500 mg Famotidine (Pepcid) 20 mg PO BID [facility] Last Admin: 02/11/17 09:28 Dose: 20 mg Heparin Sodium (Porcine) (Heparin) 5,000 units SC Q8 [facility] Last Admin: 02/11/17 14:24 Dose: 5,000 units Sodium Chloride (Sodium Chloride 0.9%) 1,000 mls @ 100 mls/hr IV .Q10H [facility] Last Admin: 02/11/17 04:04 Dose: Not Given Ibuprofen (Motrin Tab) 600 mg PO TID PRN PRN Reason: Pain, moderate (4-7) Methadone HCl (Methadone) 10 mg PO Q8H [facility] Last Admin: 02/11/17 09:28 Dose: 10 mg Ondansetron HCl (Zofran Inj) 4 mg IVP Q6 PRN PRN Reason: Nausea/Vomiting Quetiapine Fumarate (Seroquel) 200 mg PO HS [facility] Last Admin: 02/10/17 22:07 Dose: 200 mg Sertraline HCl (Zoloft) 50 mg PO DAILY [facility] Last Admin: 02/11/17 09:28 Dose: 50 mg - Labs Labs: 02/11/17 07:07 02/11/17 07:07 APTT 36 SECONDS (21-34) H 02/11/17 07:07 Attending/Attestation - Attestation I have personally seen and examined this patient.: Yes I have fully participated in the care of the patient.: Yes I have reviewed all pertinent clinical information, including history, physical exam and plan: Yes Notes (Text): 02/11/17 17:27 Patient was seen and examined at bedside with the resident Patient appears more comfortable today Still complains of dizziness Workup is in progress for syncope Patient is on methadone for heroin withdrawal Psychiatry evaluation has been requested Discussed the plan of care with the resident and agree with the above history and physical and assessment/plan by the resident
--- NOTE | 2017-02-11 14:26 | VASCLAB ---
PROCEDURE: HISTORY: Syncope COMPARISON: None available. TECHNIQUE: Grayscale and duplex Doppler evaluation of the cervical carotid and vertebral arteries were performed. The common carotid, carotid bifurcations and cervical Internal Carotid Artery (ICA) and proximal External Carotid Artery (ECA) were evaluated. The vertebral arteries were evaluated for gross patency and flow direction. Report prepared by COELEN Lott FINDINGS: RIGHT CAROTID ARTERIES: 1. Common Carotid Artery: Minimal heterogeneous plaque formation of the right CCA Maximum Peak Systolic velocity: 76 cm/sec: End-diastolic velocity 23 cm/sec. 2. Carotid Bifurcation: Heterogeneous plaque formation. Maximum Peak Systolic velocity: 51 cm/sec: End-diastolic velocity 15 cm/sec. 3. Internal Carotid Artery: Plaque description: Heterogeneous 3.1. Proximal Segment: Peak systolic velocity 67 cm/sec: End-diastolic velocity 31 cm/sec - % stenosis 0-15% 3.2. Middle Segment: Peak systolic velocity 82 cm/sec: End-diastolic velocity 45 cm/sec - % stenosis 0-15% 3.3. Distal Segment: Peak systolic velocity 97 cm/sec: End-diastolic velocity 37 cm/sec - % stenosis 0-15% 4. External Carotid Artery: Minimal heterogeneous plaque formation. Peak systolic velocity 44 cm/sec 5. ICA/CCA Ratio: 1.5 LEFT CAROTID ARTERIES: 1. Common Carotid Artery: Minimal heterogeneous plaque formation of the left CCAMaximum Peak Systolic velocity: 98 cm/sec: End-diastolic velocity 14 cm/sec. 2. Carotid Bifurcation: Heterogeneous plaque formation. Maximum Peak Systolic velocity: 56 cm/sec: End-diastolic velocity 23 cm/sec. 3. Internal Carotid Artery: Plaque description: Heterogeneous 3.1. Proximal Segment: Peak systolic velocity 61 cm/sec: End-diastolic velocity 27 cm/sec - % stenosis 0-15% 3.2. Middle Segment: Peak systolic velocity 88 cm/sec: End-diastolic velocity 43 cm/sec - % stenosis 0-15% 3.3. Distal Segment: Peak systolic velocity 50 cm/sec: End-diastolic velocity 27 cm/sec - % stenosis 0-15% 4. External Carotid Artery: No significant focal plaque formation. Peak systolic velocity 53 cm/sec 5. ICA/CCA Ratio: 1.4 VERTEBRAL ARTERIES: 1. Right Vertebral Artery: The right vertebral artery flow direction is antegrade. 2. Left Vertebral Artery: The left vertebral artery flow direction is antegrade. OTHER FINDINGS: 1. Right Brachial Blood pressure: 115 mmHg. 2. Left Brachial Blood pressure: 122 mmHg. IMPRESSION: RIGHT: Duplex scan does not suggest hemodynamically significant stenosis of the right extracranial carotid arteries. LEFT: Duplex scan does not suggest hemodynamically significant stenosis of the left extracranial carotid arteries.
--- NOTE | 2017-02-11 14:45 | CARD ---
APPROVED REPORT EKG Measurement Heart [id number] <Conclusion> Normal sinus rhythm Normal ECG
--- NOTE | 2017-02-11 17:46 | PCM.PSYCH ---
Initial Psychiatric Evaluation - Initial Psychiatric Evaluation Type of Admission: Voluntary Legal Status: Capacity Chief Complaint (in patient's own words): "I need detox" History of Present Illness and Precipitating Events: The pt is seen, chart reviewed and case discussed. Consultation is asked for his opioid use. He is a 46 yo LM, single, no child, homeless and unemployed. He uses 10 bags IV x25 years, on and off. Longest sobriety is 3.5 years. He did sbx and methadone before He also uses IV cocaine, MJ and cigarettes 1/2 ppd. Past psych hx: Bipolar d/o - Uses depakote, seroquel and zoloft. Somewhat questionable Medical hx: Hep C Family psych hx: Uncles used drugs Current Medications: Active Medications Generic Name Dose Route Start Last Admin Trade Name Freq PRN Reason Stop Dose Admin Acetaminophen 650 mg 02/10/17 17:30 Tylenol 325mg Tab PO Q6 PRN Pain, moderate (4-7) Bacitracin 1 gm 02/10/17 19:30 02/11/17 06:41 Bacitracin TOP 1 gm Q12H [facility] Administration Divalproex Sodium 500 mg 02/10/17 17:45 02/11/17 09:28 Depakote Er PO 500 mg DAILY [facility] Administration Famotidine 20 mg 02/10/17 18:00 02/11/17 17:27 Pepcid PO 20 mg BID [facility] Administration Heparin Sodium (Porcine) 5,000 units 02/10/17 17:45 02/11/17 14:24 Heparin SC 5,000 units Q8 [facility] Administration Sodium Chloride 1,000 mls @ 100 mls/hr 02/10/17 17:30 02/11/17 04:04 Sodium Chloride 0.9% IV Not Given .Q10H [facility] Ibuprofen 600 mg 02/11/17 08:13 Motrin Tab PO TID PRN Pain, moderate (4-7) Methadone HCl 10 mg 02/10/17 17:45 02/11/17 17:27 Methadone PO 10 mg Q8H [facility] Administration Ondansetron HCl 4 mg 02/10/17 17:30 Zofran Inj IVP Q6 PRN Nausea/Vomiting Quetiapine Fumarate 200 mg 02/10/17 22:00 02/10/17 22:07 Seroquel PO 200 mg HS [facility] Administration Sertraline HCl 50 mg 02/10/17 17:45 02/11/17 09:28 Zoloft PO 50 mg DAILY [facility] Administration Past Psychiatric History - Past Psychiatric History Previous Treatment History: Inpatient Pertinent Medical Hx (Current Medical&Sleep Prob, Allergies): Allergies Allergy/AdvReac Type Severity Reaction Status Date / Time No Known Allergies Allergy Verified 02/10/17 00:43 Divalproex [Depakote ER] 500 mg PO HS #7 ter 02/10/17 QUEtiapine [SEROquel] 200 mg PO HS #7 tab 02/10/17 Sertraline [Zoloft] 50 mg PO DAILY #7 tab 02/10/17 Review of Systems - Psychiatric Psychiatric: Abnormal Sleep Pattern. absent: Hallucinations, Homicidal Ideation , Paranoia, Suicidal Ideation Mental Status Examination - Personal Presentation Personal Presentation: Looks stated age - Affect Affect: Broad - Motor Activity Motor Activity: Calm - Reliability in Providing Information Reliability in Providing Information: Good - Speech Speech: Organized - Mood Mood: Neutral - Formal Thought Process Formal Thought Process: No Impairment - Cognitive Functions Orientation: Person, Place, Situation, Time Sensorium: Alert Attention/Concentration: Attentive Estimate of Intelligence: Average Judgement: Intact, as evidence by: Insight regarding need for hospitalization Memory: Recent intact, as evidence by: Ability to recall events of the day, Remote intact, as evidenced by: Abilit to recall sig. life events - Risk Risk: Withdrawal, Diminished functioning - Strength & Assets Inventory Strength & Assets Inventory: Cooperative - Limitations Limitations: Living alone DSM 5 DX - DSM 5 DSM 5 Diagnosis: Opioid withdrawal Opioid use d/o - severe Cocaine use d/o - severe Cannabis use d/o - severe Bipolar d/o - unspecified - Recommended/Plan of Treatment Treatment Recommendations and Plan of Treatment: Methadone detox adjusted As needed meds Support and psychoed Mi and CBT Refer to rehab Transfer to detox when medically cleared 33 min
[2017-02-12] MEDS: Sodium Chloride 0.9% 1,000 ML IV SCH (04:00)
[2017-02-12] MEDS: Bacitracin Ointment 30 GM TUBE TOP SCH ×2 (06:45→20:08)
[2017-02-12 07:38] LABS: BASO % 0.6 % (0.0-2.0); EOS # 0.3 K/uL (0.0-0.7); EOS % 4.5 % (0.0-4.0); HEMATOCRIT 36.7 % (35.0-51.0); LYMPH # 2.8 K/uL (1.0-4.3); LYMPH % 38.9 % (20.0-40.0); MEAN CELL VOLUME 91.8 fL (80.0-94.0); MEAN CORPUSCULAR HEMOGLOBIN 29.8 pg (27.0-31.0); MEAN CORPUSCULAR HGB CONC 32.5 g/dL (33.0-37.0); MEAN PLATELET VOLUME 9.1 fL (7.2-11.7); MONO # 0.4 K/uL (0.0-0.8); RED CELL DISTRIBUTION WIDTH 13.9 % (11.5-14.5); WHITE BLOOD COUNT 7.3 K/uL (4.8-10.8)
[2017-02-12 07:59] LABS: CHLORIDE 102 mmol/L (98-107); POTASSIUM 4.1 mmol/L (3.6-5.2); SODIUM 141 mmol/L (132-148)
[2017-02-12 08:01] LABS: GFR AFRICAN-AMERICAN > 60
[2017-02-12 08:02] LABS: ALB/GLOB RATIO 1.3 (1.0-2.1); ALKALINE PHOSPHATASE 50 U/L (38-126); ALT/SGPT 20 U/L (21-72); AST/SGOT 20 U/L (17-59); BILIRUBIN,TOTAL 0.4 mg/dL (0.2-1.3); BLOOD UREA NITROGEN 11 mg/dL (9-20); CARBON DIOXIDE 31 mmol/L (22-30); GLUCOSE,RANDOM 72 mg/dL (75-110)
--- NOTE | 2017-02-12 10:43 | CP.PCM.PN ---
<Wilda Blake - Last Filed: 02/12/17 10:40> Subjective - Date & Time of Evaluation Date of Evaluation: 02/12/17 Time of Evaluation: 07:00 - Subjective Subjective: Internal medicine progress note for Hospitalist service- Wilda Blake, PGY-1 Pt S & E at bedside. Pt reports improvement in blurry vision, lightheadedness, weakness, shakes, whole body pain. Pt reports tolerating diet, denies N/V. Denies lethargy, F/C , SOB, CP, abdominal pain, did not sleep due to Seroquel being held 2/2 bradycardia, is urinating ok. Pt stable. Objective - Vital Signs/Intake and Output Vital Signs (last 24 hours): Temp Pulse Resp BP Pulse Ox 97.8 F 45 L 19 134/80 98 02/12/17 08:00 02/12/17 08:28 02/12/17 08:00 02/12/17 08:00 02/12/17 08:00 Intake and Output: 02/12/17 02/12/17 06:59 18:59 Intake Total 1100 Output Total 325 Balance 775 - Medications Medications: Current Medications Acetaminophen (Tylenol 325mg Tab) 650 mg PO Q6 PRN PRN Reason: Pain, moderate (4-7) Bacitracin (Bacitracin) 1 gm TOP Q12H [facility] Last Admin: 02/12/17 06:45 Dose: 1 gm Divalproex Sodium (Depakote Er) 500 mg PO BID [facility] Last Admin: 02/11/17 19:33 Dose: 500 mg Famotidine (Pepcid) 20 mg PO BID [facility] Last Admin: 02/12/17 09:28 Dose: 20 mg Heparin Sodium (Porcine) (Heparin) 5,000 units SC Q8 [facility] Last Admin: 02/12/17 06:44 Dose: 5,000 units Sodium Chloride (Sodium Chloride 0.9%) 1,000 mls @ 100 mls/hr IV .Q10H [facility] Last Admin: 02/12/17 04:00 Dose: 100 mls/hr Ibuprofen (Motrin Tab) 600 mg PO TID PRN PRN Reason: Pain, moderate (4-7) Methadone HCl (Methadone) 20 mg PO Q24H [facility] PRN Reason: Taper Stop: 02/16/17 09:59 Ondansetron HCl (Zofran Inj) 4 mg IVP Q6 PRN PRN Reason: Nausea/Vomiting Quetiapine Fumarate (Seroquel) 100 mg PO HS [facility] Sertraline HCl (Zoloft) 50 mg PO DAILY [facility] Last Admin: 02/12/17 09:28 Dose: 50 mg - Labs Labs: 02/12/17 07:22 02/12/17 07:22 APTT 36 SECONDS (21-34) H 02/11/17 07:07 - Constitutional Appears: Non-toxic, No Acute Distress - Head Exam Head Exam: NORMOCEPHALIC. absent: ATRAUMATIC (healing superficial laceration over nasal bridge, healing abrasion over left chin, contusion on forehead resolving- smaller today) - Eye Exam Eye Exam: EOMI, Normal appearance, PERRL Pupil Exam: NORMAL ACCOMODATION, PERRL - ENT Exam ENT Exam: Mucous Membranes Moist, Normal Exam - Neck Exam Neck Exam: Full ROM, Normal Inspection - Respiratory Exam Respiratory Exam: Clear to Ausculation Bilateral, NORMAL BREATHING PATTERN - Cardiovascular Exam Cardiovascular Exam: REGULAR RHYTHM, +S1, +S2 - GI/Abdominal Exam GI & Abdominal Exam: Soft, Normal Bowel Sounds. absent: Tenderness - Extremities Exam Extremities Exam: Full ROM, Normal Inspection. absent: Pedal Edema - Back Exam Back Exam: Full ROM, NORMAL INSPECTION - Neurological Exam Neurological Exam: Alert, Awake, CN II-XII Intact, Oriented x3 - Psychiatric Exam Psychiatric exam: Normal Affect, Normal Mood - Skin Skin Exam: Abrasion (left chin), Dry, Normal Color, Warm. absent: Intact ( nasal bridge superficial laceration) Assessment and Plan - Assessment and Plan (Free Text) Assessment: Syncope - likely due to drug use Afebrile over 24H No leukocytosis FU echo- report pending NS@100 Zofran PRN Tylenol PRN Neuro checks Q4H Wound care to abrasions - Bacitracin Q12H carotids- no stenosis CT brain neg Motrin PRN Substance abuse/Bipolar/anxiety/depression Cont home meds: Depakote, Seroquel, Zoloft Methadone taper initiated Psych consulted- pt accepted to inpatient detox program as per Dr. Ledezma GI/DVT ppx SCDs Heparin pepcid Dispo Wound care to abrasions Pt stable Transfer to psych Further mgmt/changes in mgmt as per psych team Will s/o DW attending <Bon Franklin - Last Filed: 02/12/17 15:12> Objective - Vital Signs/Intake and Output Vital Signs (last 24 hours): Temp Pulse Resp BP Pulse Ox 97.7 F 57 L 18 151/92 H 97 02/12/17 14:58 02/12/17 14:58 02/12/17 14:58 02/12/17 14:58 02/12/17 14:58 - Medications Medications: Current Medications Acetaminophen (Tylenol 325mg Tab) 650 mg PO Q6 PRN PRN Reason: Pain, moderate (4-7) Bacitracin (Bacitracin) 1 gm TOP Q12H [facility] Last Admin: 02/12/17 06:45 Dose: 1 gm Divalproex Sodium (Depakote Dr) 500 mg PO BID [facility] Famotidine (Pepcid) 20 mg PO BID [facility] Last Admin: 02/12/17 09:28 Dose: 20 mg Heparin Sodium (Porcine) (Heparin) 5,000 units SC Q8 [facility] Last Admin: 02/12/17 06:44 Dose: 5,000 units Ibuprofen (Motrin Tab) 600 mg PO TID PRN PRN Reason: Pain, moderate (4-7) Methadone HCl (Methadone) 20 mg PO Q24H [facility] PRN Reason: Taper Stop: 02/16/17 09:59 Last Admin: 02/12/17 09:55 Dose: 20 mg Quetiapine Fumarate (Seroquel) 100 mg PO HS [facility] Sertraline HCl (Zoloft) 50 mg PO DAILY [facility] Last Admin: 02/12/17 09:28 Dose: 50 mg - Labs Labs: APTT 36 SECONDS (21-34) H 02/11/17 07:07 Attending/Attestation - Attestation I have personally seen and examined this patient.: Yes I have fully participated in the care of the patient.: Yes I have reviewed all pertinent clinical information, including history, physical exam and plan: Yes Notes (Text): 02/12/17 15:10 Patient was seen and examined at bedside with the resident Patient appears comfortable Wounds are healing. Continue bacitracin ointment daily Patient has been excepted by detox unit. Patient is medically cleared for transfer to detox. Discussed with the resident. Agree with the above history and physical and assessment/plan by the resident.
[2017-02-12] MEDS: Divalproex 500 mg ER Tab PO SCH (11:30)
--- NOTE | 2017-02-12 14:37 | CARD ---
APPROVED REPORT EXAM: Two-dimensional and M-mode echocardiogram with Doppler and color Doppler. Other Information Quality : GoodRhythm : INDICATION Murmur Syncope HEROIN USE M-Mode DIMENSIONS RVDd1.68 (2.1-3.2cm)Left Atrium (MM)3.51 (2.5-4.0cm) IVSd0.94 (0.7-1.1cm)Aortic Root3.12 (2.2-3.7cm) LVDd6.09 (4.0-5.6cm)Aortic Cusp Exc.2.19 (1.5-2.0cm) PWd0.94 (0.7-1.1cm)FS (%) 33 % LVDs4.10 (2.0-3.8cm)LVEF (%)60 (>50%) Aortic Valve AoV Peak Vpfrjjuj590.9cm/Margret Peak GR.6mmHgAI P 1/2 [id number] Mitral Valve MV E Pccopnre352.5cm/sMV A Wymgsmox63.2cm/sE/A ratio1.8 TDI E/Lateral E'0.0E/Medial E'0.0 Tricuspid Valve TR Peak [id number]/sTR Peak Gr.[id number] LEFT VENTRICLE The Left Ventricle is mildly dilated. There is normal left ventricular wall thickness. The left ventricular function is normal. The left ventricular ejection fraction is within the normal range. No regional wall motion abnormalities noted. The left ventricular diastolic function is normal. No left ventricle thrombus noted on this study. There is no ventricular septal defect visualized. There is no left ventricular aneurysm. There is no mass noted in the left ventricle. RIGHT VENTRICLE The right ventricle is normal size. There is normal right ventricular wall thickness. The right ventricular systolic function is normal. ATRIA The left atrium size is normal. The right atrium size is normal. The interatrial septum is intact with no evidence for an atrial septal defect. AORTIC VALVE ABNORMAL ECHO DENSITY ON ARTERIAL SIDE OF AOV ? PAPILOMA CORRELATE WITH DEBBY There is mild aortic regurgitation. There is no aortic valvular stenosis. There is no aortic valvular vegetation. MITRAL VALVE The mitral valve is normal in structure and function. There is no evidence of mitral valve prolapse. There is no mitral valve stenosis. Mitral regurgitation is mild. TRICUSPID VALVE The tricuspid valve is normal in structure and function. There is mild tricuspid regurgitation. Right ventricular systolic pressure is estimated at less than 30 mmHg. There is no tricuspid valve prolapse or vegetation. There is no tricuspid valve stenosis. PULMONIC VALVE The pulmonary valve is normal in structure and function. There is no pulmonic valvular regurgitation. There is no pulmonic valvular stenosis. GREAT VESSELS The aortic root is normal in size. The ascending aorta is normal in size. The pulmonary artery is normal. The IVC is normal in size and collapses >50% with inspiration. PERICARDIAL EFFUSION The pericardium appears normal. There is no pleural effusion. <Conclusion> The Left Ventricle is mildly dilated. The left ventricular function is normal. The left ventricular ejection fraction is within the normal range. No regional wall motion abnormalities noted. ABNORMAL ECHO DENSITY ON ARTERIAL SIDE OF AOV ? PAPILOMA CORRELATE WITH DEBBY There is mild aortic regurgitation. Mitral regurgitation is mild.
[2017-02-12] MEDS: Divalproex 500 mg DR Tab PO SCH (17:02)
--- NOTE | 2017-02-12 23:42 | PCM.PYCHPN ---
Psychiatric Progress Note - Psychiatric Progress Note Patient seen today, length of contact: 16 min Patient Chief Complaint: "I am a little better" Problems Identified/Issues Discussed: The pt is seen, chart reviewed, case discussed with staff. The pt is compliant with medications and reports no side-effects. Methadone detox. Symptoms are improving but needs more time to stabilize. After care discussed, support and psychoeducation given. wants to go to rehab Medication Change: Yes (detox changes daily) Medical Record Reviewed: Yes Mental Status Examination - Cognitive Function Orientation: Person, Place, Situation, Time Memory: Intact Attention: WNL Concentration: WNL Association: WNL Fund of Knowledge: WNL - Mood Mood: Neutral - Affect Affect: Broad - Speech Speech: Appropriate - Formal Thought Process Formal Thought Process: No Impairment - Suicidal Ideation Suicidal Ideation: No - Homicidal Ideation Homicidal Ideation: No Goal/Treatment Plan - Goal/Treatment Plan Need for Continued Stay: Discharge may exacerbated symptoms, Severe functional impairment Progress Toward Problem(s) and Goals/Treatment Plan: Methadone detox continues As needed meds Support and psychoed Mi and CBT [facility] to [facility]
[2017-02-13 08:09] LABS: BASO % 0.3 % (0.0-2.0); EOS # 0.4 K/uL (0.0-0.7); EOS % 5.4 % (0.0-4.0); HEMATOCRIT 37.7 % (35.0-51.0); LYMPH # 2.5 K/uL (1.0-4.3); LYMPH % 33.9 % (20.0-40.0); MEAN CELL VOLUME 91.6 fL (80.0-94.0); MEAN CORPUSCULAR HEMOGLOBIN 30.5 pg (27.0-31.0); MEAN CORPUSCULAR HGB CONC 33.3 g/dL (33.0-37.0); MONO # 0.5 K/uL (0.0-0.8); RED CELL DISTRIBUTION WIDTH 13.6 % (11.5-14.5); WHITE BLOOD COUNT 7.3 K/uL (4.8-10.8)
[2017-02-13 09:23] LABS: CHLORIDE 99 mmol/L (98-107)
[2017-02-13 09:24] LABS: SODIUM 143 mmol/L (132-148)
[2017-02-13 09:27] LABS: ALB/GLOB RATIO 1.2 (1.0-2.1); ALKALINE PHOSPHATASE 54 U/L (38-126); ALT/SGPT 20 U/L (21-72); AST/SGOT 25 U/L (17-59); BILIRUBIN,TOTAL < 0.1 mg/dL (0.2-1.3); BLOOD UREA NITROGEN 13 mg/dL (9-20); CALCIUM 8.7 mg/dl (8.6-10.4); CARBON DIOXIDE 33 mmol/L (22-30); GFR AFRICAN-AMERICAN > 60; GLUCOSE,RANDOM 82 mg/dL (75-110); TOTAL PROTEIN 6.3 g/dL (6.3-8.3)
[2017-02-13] MEDS: Divalproex 500 mg DR Tab PO SCH ×2 (09:46→17:54)
[2017-02-13] MEDS: Bacitracin Ointment 30 GM TUBE TOP SCH ×2 (09:46→21:07)
--- NOTE | 2017-02-13 14:43 | PCM.PYCHPN ---
Psychiatric Progress Note - Psychiatric Progress Note Patient seen today, length of contact: 17 min Patient Chief Complaint: "I am OK today" Problems Identified/Issues Discussed: The pt is seen, chart reviewed, case discussed with staff. The pt is compliant with medications and reports no side-effects. Methadone detox today is 15 min Symptoms are improving but needs more time to stabilize. has relapse risk After care discussed, support and psychoeducation given. wants to go to rehab but at the same time he says he can't do [employer] b/c he has medical issues, pain etc. He does not have an ID, which is a big problem. He may need to go back to [place] re[facility]abs Medication Change: Yes (detox changes daily) Medical Record Reviewed: Yes Mental Status Examination - Cognitive Function Orientation: Person, Place, Situation, Time Memory: Intact Attention: WNL Concentration: WNL Association: WNL Fund of Knowledge: WNL - Mood Mood: Neutral - Affect Affect: Broad - Speech Speech: Appropriate - Formal Thought Process Formal Thought Process: No Impairment - Suicidal Ideation Suicidal Ideation: No - Homicidal Ideation Homicidal Ideation: No Goal/Treatment Plan - Goal/Treatment Plan Need for Continued Stay: Discharge may exacerbated symptoms, Severe functional impairment Progress Toward Problem(s) and Goals/Treatment Plan: Methadone detox continues As needed meds Support and psychoed [place] and CBT Refer to senior living rehab - see HPI re obstacles Estimated Date of D/C: 02/16/17 - Smoking Cessation Smoking Cessation Initiated: Yes
[2017-02-14] MEDS: Bacitracin Ointment 30 GM TUBE TOP SCH ×2 (08:29→19:15)
[2017-02-14 09:07] LABS: BASO % 0.5 % (0.0-2.0); EOS # 0.4 K/uL (0.0-0.7); HEMATOCRIT 41.7 % (35.0-51.0); LYMPH # 2.4 K/uL (1.0-4.3); LYMPH % 33.5 % (20.0-40.0); MEAN CORPUSCULAR HEMOGLOBIN 29.9 pg (27.0-31.0); MEAN CORPUSCULAR HGB CONC 32.5 g/dL (33.0-37.0); MEAN PLATELET VOLUME 9.1 fL (7.2-11.7); MONO # 0.5 K/uL (0.0-0.8); MONO % 6.5 % (0.0-10.0); RED CELL DISTRIBUTION WIDTH 13.7 % (11.5-14.5); WHITE BLOOD COUNT 7.1 K/uL (4.8-10.8)
[2017-02-14] MEDS: Divalproex 500 mg DR Tab PO SCH ×2 (09:13→17:41)
[2017-02-14 09:22] LABS: CHLORIDE 96 mmol/L (98-107); POTASSIUM 3.9 mmol/L (3.6-5.2); SODIUM 143 mmol/L (132-148)
[2017-02-14 09:24] LABS: BILIRUBIN,TOTAL 0.2 mg/dL (0.2-1.3); CARBON DIOXIDE 34 mmol/L (22-30); GFR AFRICAN-AMERICAN > 60
[2017-02-14 09:25] LABS: ALB/GLOB RATIO 1.3 (1.0-2.1); ALKALINE PHOSPHATASE 58 U/L (38-126); ALT/SGPT 19 U/L (21-72); AST/SGOT 21 U/L (17-59); BLOOD UREA NITROGEN 14 mg/dL (9-20); GLUCOSE,RANDOM 95 mg/dL (75-110); TOTAL PROTEIN 7.1 g/dL (6.3-8.3)
--- NOTE | 2017-02-14 13:08 | PCM.PYCHPN ---
Psychiatric Progress Note - Psychiatric Progress Note Patient seen today, length of contact: 16 min Patient Chief Complaint: "I am tired" Problems Identified/Issues Discussed: The pt is seen, chart reviewed, case discussed with staff. The pt is compliant with medications and reports no side-effects. Symptoms of withdrawal are improving but needs more time to stabilize. After care discussed, support and psychoeducation given. he is still waiting to hear from the few places he applied or wants to apply, ie [facility] [place] and CBT used briefly. Medication Change: Yes (detox changes daily) Medical Record Reviewed: Yes Mental Status Examination - Cognitive Function Orientation: Person, Place, Situation, Time Memory: Intact Attention: WNL Concentration: WNL Association: WN Fund of Knowledge: WN - Mood Mood: Neutral - Affect Affect: Broad - Speech Speech: Appropriate - Formal Thought Process Formal Thought Process: No Impairment - Suicidal Ideation Suicidal Ideation: No - Homicidal Ideation Homicidal Ideation: No Goal/Treatment Plan - Goal/Treatment Plan Need for Continued Stay: Discharge may exacerbated symptoms, Severe functional impairment Progress Toward Problem(s) and Goals/Treatment Plan: Methadone detox continues As needed meds Support and psychoed [place] and CBT Refer to care home rehab Estimated Date of D/C: 02/16/17
[2017-02-15] MEDS: Bacitracin Ointment 30 GM TUBE TOP SCH ×2 (08:32→21:05)
[2017-02-15 10:46] LABS: BASO % 0.1 % (0.0-2.0); EOS # 0.3 K/uL (0.0-0.7); HEMATOCRIT 40.7 % (35.0-51.0); LYMPH # 1.8 K/uL (1.0-4.3); LYMPH % 21.4 % (20.0-40.0); MEAN CELL VOLUME 92.1 fL (80.0-94.0); MEAN CORPUSCULAR HEMOGLOBIN 30.3 pg (27.0-31.0); MEAN CORPUSCULAR HGB CONC 32.9 g/dL (33.0-37.0); MEAN PLATELET VOLUME 8.7 fL (7.2-11.7); MONO # 0.7 K/uL (0.0-0.8); MONO % 8.1 % (0.0-10.0); WHITE BLOOD COUNT 8.5 K/uL (4.8-10.8)
[2017-02-15 10:54] LABS: CHLORIDE 98 mmol/L (98-107); SODIUM 142 mmol/L (132-148)
[2017-02-15 10:55] LABS: POTASSIUM 3.8 mmol/L (3.6-5.2)
[2017-02-15 10:57] LABS: ALB/GLOB RATIO 1.2 (1.0-2.1); ALKALINE PHOSPHATASE 55 U/L (38-126); ALT/SGPT 32 U/L (21-72); AST/SGOT 33 U/L (17-59); BILIRUBIN,TOTAL 0.3 mg/dL (0.2-1.3); BLOOD UREA NITROGEN 20 mg/dL (9-20); CARBON DIOXIDE 32 mmol/L (22-30); GFR AFRICAN-AMERICAN > 60; GLUCOSE,RANDOM 110 mg/dL (75-110); TOTAL PROTEIN 6.6 g/dL (6.3-8.3)
[2017-02-15 10:58] LABS: CALCIUM 8.6 mg/dl (8.6-10.4)
[2017-02-15] MEDS: Divalproex 500 mg DR Tab PO SCH ×2 (10:59→17:20)
--- NOTE | 2017-02-15 18:52 | PCM.PYCHPN ---
Psychiatric Progress Note - Psychiatric Progress Note Patient seen today, length of contact: 15 min Patient Chief Complaint: "I am down" Problems Identified/Issues Discussed: The pt is seen, chart reviewed, case discussed with staff. The pt is compliant with medications and reports no side-effects. Symptoms are improving but needs more time to stabilize. He feels down b/c he is afraid he willbe homeless. Support given Not neo/homi. After care discussed, alternatives discussed [place] and CBT used briefly. Medication Change: Yes (detox changes daily, increase zoloft) Medical Record Reviewed: Yes Mental Status Examination - Cognitive Function Orientation: Person, Place, Situation, Time Memory: Intact Attention: WNL Concentration: WNL Association: WNL Fund of Knowledge: WNL - Mood Mood: Depressed - Affect Affect: Broad - Speech Speech: Appropriate - Formal Thought Process Formal Thought Process: No Impairment - Suicidal Ideation Suicidal Ideation: No - Homicidal Ideation Homicidal Ideation: No Goal/Treatment Plan - Goal/Treatment Plan Need for Continued Stay: Discharge may exacerbated symptoms, Severe functional impairment Progress Toward Problem(s) and Goals/Treatment Plan: Methadone detox continues As needed meds Continue psych meds Increase zoloft to 100 mg Support and psychoed [place] and CBT Refer to [facility] rehab Estimated Date of D/C: 02/16/17
[2017-02-16] MEDS: Divalproex 500 mg DR Tab PO SCH ×2 (09:08→17:55)
[2017-02-16] MEDS: Bacitracin Ointment 30 GM TUBE TOP SCH ×2 (09:38→21:03)
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
[2017-02-17] MEDS: Divalproex 500 mg DR Tab PO SCH (09:11)
[2017-02-17] MEDS: Bacitracin Ointment 30 GM TUBE TOP SCH (09:58)
[2017-02-17 11:04] VITALS: BP 120/78; PULSE 70; RESP 16; TEMP 97; O2SAT 97
--- NOTE | 2017-02-17 14:35 | PCM.PYCHDC ---
Mental Status Examination - Mental Status Examination Orientation: Person, Place, Situation, Time Memory: Intact Mood: Neutral Affect: Constricted Speech: Appropriate Attention: WNL Concentration: WNL Association: WNL Fund of Knowledge: WNL Formal Thought Process: No Impairment Suicidal Ideation: No Current Homicidal Ideation?: No Discharge Summary - Discharge Note Reason for Hospitalization: Heroin detox Consultations:: List each consultation separately and include: 1. Reason for request. 2. Findings. 3. Follow-up Summary of Hospital Course include:: 1. Description of specific treatment plan utilized for patients during their course of treatmen. 2. Summarize the time- course for resolution of acute symptoms and/or regressed behaviors. 3. Describe issues identified and worked on during hospitalization. 4. Describe medication utilized. 5. Describe medical problems identified and treated. 6. Reassessment of suicide risk Summary of Hospital Course: On admission: He is a 46 yo LM, single, no child, homeless and unemployed. He uses 10 bags IV x25 years, on and off. Longest sobriety is 3.5 years. He did sbx and methadone before He also uses IV cocaine, MJ and cigarettes 1/2 ppd. Past psych hx: Bipolar d/o - Uses depakote, seroquel and zoloft. Somewhat questionable, likely wrongly diagnosed while using or withdrawing (or due to personality disorder) Medical hx: Hep C Family psych hx: Uncles used drugs Hospital Course: He is first seen in medicine unit and then transferred to detox to complete his detox. Pt. is seen ambulating w/o walker. Pt. is encouraged to apply for insurance if he would like to participate in a suboxone program. Pt. is also encouraged to go to meetings. It is understood that he needs to wait for notice from [facility], as he is currently on their waiting list. In the meantime, Pt. states that he will be staying at a senior care in [place]. He was unmotivated, splitting, at times help-rejecting and despite our counselors' best efforts and his longer than usual stay, he was not satisfied and claimed we were "kicking him out." (??) He did not have insurance and was also rejecting some programs, ie [facility] even though he could participate. - Final Diagnosis (DSM 5) Condition upon Discharge: FAIR DSM 5: Opioid withdrawal Opioid use d/o - severe Personality d/o - unspecified Cocaine use d/o - sever Cannabis use d/o - severe Bipolar unspecified (by history) Disposition: HOME/ ROUTINE Follow-up Treatment Plan: Referred to [facility] - currently waitlisted for [facility] Encouraged to attend meetings [place] provided for abstinence Encouraged to apply for insurance Continue medications after discharge. Use relapse prevention skills Return to ER or call 911 if suicidal, homicidal or symptoms relapse. Stay away from stress, alcohol and drugs. - Smoking Cessation Smoking Cessation Medication prescribed: No - Antipsychotic Medications Pt discharged on 2 or more routine antipsychotic medications: No
== END 2017-02-17 13:00 | disposition home or self-care (01) | DRG 745 ==
LOC: C.ER 13:02 → C.9E 16:34 → C.5T 19:08 → OBSVTOIN 02-12 09:37 → C.7D 02-12 09:37
PROVIDERS: ADMIT Psychiatry & Neurology Psychiatry; ATTEND Psychiatry & Neurology Psychiatry
PROC: HZ81ZZZ Medication Management for Substance Abuse Treatment, Methadone Maintenance (ICD-10-PCS; principal; 2017-02-12)
PROC: HZ2ZZZZ Detoxification Services for Substance Abuse Treatment (ICD-10-PCS; 2017-02-12)
PROC: GZ56ZZZ Individual Psychotherapy, Supportive (ICD-10-PCS; 2017-02-12)
DX: F11.23 Opioid dependence with withdrawal (principal); F31.9 Bipolar disorder, unspecified; R55 Syncope and collapse; W01.0XXA Fall on same level from slipping, tripping and stumbling without subsequent striking against object, initial encounter; F41.9 Anxiety disorder, unspecified; F12.90 Cannabis use, unspecified, uncomplicated; F14.90 Cocaine use, unspecified, uncomplicated; F17.210 Nicotine dependence, cigarettes, uncomplicated; S00.81XA Abrasion of other part of head, initial encounter